=== PATIENT | male | born 1940 | race Caucasian/White ===

== ENCOUNTER 2018-09-07 09:27 | Emergency (ER) | payer MEDICARE ==
[~2018-09-07] VITALS: Ht 185.4 cm; Wt 104.1 kg
[~2018-09-07 09:27] MED LIST: AMLODIPINE BESYL5 MG PO; AMLODIPINE10 MG OR; AMLODIPINE10 MG PO; ANTIVERT OR; ASPIRIN EC81 MG PO; ATORVASTATIN CA40 MG PO; BABY ASPIRIN81 MG OR; BENICAR20 MG PO; CO Q 1010 MG PO; DIOVAN160 MG OR; DIOVAN160 MG PO; FLOMAX0.4 M1 PO; LANOXIN0.25 MG OR; LASIX40 MG OR; LIPITOR10 MG PO; LIPITOR20 MG OR; LIPITOR20 MG PO; LOSARTAN POT50 MG PO; METO50TA52 PO; METOPROL TAR50 MG OR; MULTIVITAM10 OR; OMEPRAZOLE20 MG PO; PLAVIX75 MG OR; PRILOSEC20 MG/CAP PO; SIMVASTATIN40 MG PO; TAMSULOSIN0.4 MG OR; ULTRAM ER100 MG OR; VITAMIN D PO; VITAMIN D400 UNI1 PO
[2018-09-07] MEDS ORDERED: VITAMIN D-32000 UNIT PO (09:42)
[2018-09-07] MEDS ORDERED: CARVEDILOL25 MG PO (09:42)
[2018-09-07] MEDS ORDERED: LOSARTAN POTASS50 MG PO (09:43)
[2018-09-07] MEDS ORDERED: HYDRALAZINE25 MG PO (09:43)
[2018-09-07 09:55] LABS: HEMATOCRIT 38.3 % (39.0-50.0); IMMATURE GRANULOCYTES 0.3 % (0.0-5.0); MEAN CORPUSCULAR HGB 33.2 pG CALC (26.0-32.0); MEAN CORPUSCULAR HGB CONC 33.9 g/L CALC (32.0-36.0); NEUT# 4.59 thou/uL (1.82-7.42); RED BLOOD COUNT 3.91 mill/uL (4.70-6.10); RED CELL DISTRI WIDTH 13.4 % (11.5-15.5)
[2018-09-07 10:13] LABS: ALKALINE PHOSPHATASE 81 u/l (38-126); ANION GAP 14 (6-22 (CALC)); BILIRUBIN, TOTAL 0.9 mg/dL (0.0-1.4); BUN 21 mg/dL (8-23); BUN/CREATININE RATIO 16 (12-20 (CALC)); CARBON DIOXIDE 25 mmol/l (22-30); CHLORIDE 107 mmol/l (95-108); CREATININE 1.3 mg/dL (0.7-1.3); GFR 53 ML/MIN (>=60 (CALC)); GFR FOR AFR.AMER. > 60 ML/MIN (>=60 (CALC)); POTASSIUM 4.6 mmol/l (3.5-5.1); SGOT/AST 37 u/l (19-48); SODIUM 141 mmol/l (137-146); TOTAL PROTEIN 7.4 g/dL (6.3-8.2)
[2018-09-07 11:38] VITALS: BP 151/72
== END 2018-09-07 11:40 | disposition home or self-care (01) ==
LOC: ED 09:27
PROVIDERS: Emergency Medicine
DX: R00.2 Palpitations (principal); I10 Essential (primary) hypertension; Z95.1 Presence of aortocoronary bypass graft

== ENCOUNTER 2020-04-23 19:24 | Observation (INO) | payer MEDICARE ==
[~2020-04-23] VITALS: Ht 185.4 cm; Wt 99.1 kg
[~2020-04-23 19:24] MED LIST changes: +B-121000 MC1 PO; +CARVEDILOL25 MG PO; +CO Q-10200 M1 PO; +HYDRALAZINE25 MG PO; +LIPITOR40 M1 PO; +LOSARTAN POTASS50 MG PO; +MICARDIS HC1 PO; +NITROGLYCERIN0.4 MG; -PRILOSEC20 MG/CAP PO; +TIZANIDINE2 MG PO; +VITAMIN D-32000 UNIT PO; +VITAMIN D32000 UNIT PO
--- NOTE | 2020-04-23 19:36 | NUR ---
IMMEDIATELY TO ROOM 12 VIA WC IN STABLE CONDITION. EKG OBTAINED, READ SINUS RAHUL, DR PRASAD NOTIFIED OF PT'S STATUS.
[2020-04-23] MEDS ORDERED: PRILOSEC20 MG/CAP PO (19:45)
[2020-04-23 20:04] LABS: HEMATOCRIT 37.1 % (39.0-50.0); HEMOGLOBIN 12.4 g/dl (14.0-18.0); IMMATURE GRANULOCYTES 0.2 % (0.0-5.0); MEAN CELL VOLUME 96.4 fL CALC (80.0-100.0); MEAN CORPUSCULAR HGB 32.2 pG CALC (26.0-32.0); MEAN CORPUSCULAR HGB CONC 33.4 g/dL CAL (32.0-36.0); NEUT# 4.48 thou/uL (1.82-7.42); RED BLOOD COUNT 3.85 mill/uL (4.70-6.10); RED CELL DISTRI WIDTH 13.2 % (11.5-15.5)
[2020-04-23 20:10] LABS: ALBUMIN 4.3 g/dL (3.2-5.0); ALKALINE PHOSPHATASE 90 u/l (38-126); AMYLASE 107 u/l (30-110); ANION GAP 11 (6-22 (CALC)); BILIRUBIN, TOTAL 0.6 mg/dL (0.0-1.4); BUN 31 mg/dL (8-23); BUN/CREATININE RATIO 22 (12-20 (CALC)); CARBON DIOXIDE 26 mmol/l (22-30); CHLORIDE 104 mmol/l (95-108); CREATININE 1.4 mg/dL (0.7-1.3); GFR 49 ML/MIN (>=60 (CALC)); GFR FOR AFR.AMER. 59 ML/MIN (>=60 (CALC)); LIPASE 125 u/l (23-300); POTASSIUM 4.1 mmol/l (3.5-5.1); SGOT/AST 25 u/l (19-48); SODIUM 137 mmol/l (137-146); TOTAL PROTEIN 7.3 g/dL (6.3-8.2)
[2020-04-23 20:12] LABS: D-DIMER 2.44 mg/L (0.19-0.60)
[2020-04-23 20:16] LABS: ACT PARTIAL THROMBO TIME 23.4 SECONDS (20.0-32.5); PROTHROMBIN TIME 10.1 SECONDS (9.0-12.5)
--- NOTE | 2020-04-23 20:36 | NUR ---
PT STILL DENIES ANY PAIN OR DISCOMFORT. STILL WAITING ON TEST RESULTS.
[2020-04-23 20:45] LABS: MAGNESIUM 1.7 mg/dL (1.6-2.3)
--- NOTE | 2020-04-23 21:34 | NUR ---
DR PRASAD IN TO GO OVER RESULTS WITH PT.
--- NOTE | 2020-04-23 22:20 | NUR ---
CALLED TO GIVE REPORT. PLACED ON TERMINAL HOLD.
--- NOTE | 2020-04-23 22:27 | NUR ---
Admission Note Report Given to: DENZEL BUSTILLOS Transported by: X Wheelchair Stretcher Transported with: X Nurse Transporter X Patent IV O2 Stove Tender Location: ICU X MS2
[2020-04-23 22:43] VITALS: BP 156/81
--- NOTE | 2020-04-23 23:00 | NUR ---
PT. ARRIVED TO THE FLOOR AT 2240; ADMISSION ASSESMENT COMPLETED. NO RESP. DISTRESS NOTED. IV SITE PATENT AND SL, FLUSHES WELL. TELEMETRY IN PLACE. PT. DENIES CP AT THIS TIME AND NITRO PASTE IN PLACE TO LEFT CHEST. DECLINES CHASIDY HOSE AND NON-SKID SOCKS APPLIED. EDUCATED STOCKROOM SELECTOR LIGHT, ROOM, AND POC; VERBALIZES UNDERSTANDING. PO FLUIDS OFFERED. PT. DENIES NEEDS/PAIN. ENCOURAGED TO CALL FOR ANY NEEDS.
[2020-04-23 23:10] LABS: URINE BILIRUBIN - DIPSTICK NEGATIVE (NEGATIVE); URINE BLOOD DIPSTICK NEGATIVE (NEGATIVE); URINE COLOR YELLOW; URINE GLUCOSE - DIPSTICK NEGATIVE (NEGATIVE); URINE KETONE NEGATIVE (NEGATIVE); URINE LEUK ESTERASE NEGATIVE (NEGATIVE); URINE NITRITE - DIPSTICK NEGATIVE (Negative); URINE PROTEIN - DIPSTICK NEGATIVE (NEG-TRACE); URINE SPECIFIC GRAVITY 1.015; URINE UROBILINOGEN - DIPSTICK 0.2 E.U./dL (0.2)
--- NOTE | 2020-04-23 23:44 | NUR ---
PT. REQUESTS PRN SLEEPING PILL AND MEDICATED WITH ORDERED PRN RESTORIL. DENIES FURTHER NEEDS.
[2020-04-24 04:00] VITALS: BP 137/63
--- NOTE | 2020-04-24 04:00 | NUR ---
REMOVED NITRO PASTE FROM CHEST R/T LOW HR. DENIES NEEDS/PAIN. ENCOURAGED TO CALL FOR ANY NEEDS.
[2020-04-24 06:18] LABS: MAGNESIUM 1.7 mg/dL (1.6-2.3)
[2020-04-24 06:19] LABS: CHOLESTEROL HDL RATIO 3.2 (<4.4 (CALC))
[2020-04-24 07:31] VITALS: BP 155/69
--- NOTE | 2020-04-24 08:15 | NUR ---
ASSESSMENT IS COMPLTED: IV SITE IS FREE FROM REDNESS OR EDEMA. HR IS REG,PULSES ARE STRONG X4, ABD IS SOFT WITH ACTIVE BS. BREATH SOUNDS ARE CLEAR BILATERALLY, NO C/O SOB. NO C/O CHEST PRESSURE. STATED" IT WAS GONE BEFORE COMING TO [facility]". TELE MONITOR IN PLACE. CONTINUE TO OBSERVE AND MONITOR.
[2020-04-24 10:30] VITALS: BP 157/73
--- NOTE | 2020-04-24 12:15 | NUR ---
PT FAMILY IN THE ROOM. NO DITRESS MOTED. IV SITE IS FREE FROM REDNESS OR EDEMA. TELE AND IV DISCONITNUED CATHETER INTACT NO REDNESS OR EDEMA.
--- NOTE | 2020-04-24 12:35 | NUR ---
DISCHARGE INSTRUCTIONS GIVEN TO PT AND FAMILY VERBALIZED UNDERSTANDING. WILL INFORM WHEN HE IS READY TO GO.
--- NOTE | 2020-04-24 13:00 | NUR ---
Discharge instructions given. Patient verbalizes understanding of same. Discharged in stable condition via Wheelchair to Home with family. All belongings sent with pt.
== END 2020-04-24 12:44 | disposition home or self-care (01) ==
LOC: ED 19:24 → ED-I 21:30 → ED 21:44 → MS2 21:45
PROVIDERS: ADMIT Internal Medicine; ATTEND Internal Medicine
DX: R07.89 Other chest pain (principal); I10 Essential (primary) hypertension; I25.10 Atherosclerotic heart disease of native coronary artery without angina pectoris; E78.5 Hyperlipidemia, unspecified; R00.1 Bradycardia, unspecified; R14.2 Eructation; R10.13 Epigastric pain; I25.2 Old myocardial infarction; Z95.1 Presence of aortocoronary bypass graft; Z20.828 Contact with and (suspected) exposure to other viral communicable diseases
CPT/HCPCS: G0378; Q9967

== ENCOUNTER 2020-11-03 15:44 | Emergency (ER) | payer MEDICARE ==
[~2020-11-03] VITALS: Ht 185.4 cm; Wt 100.0 kg
[~2020-11-03 15:44] MED LIST changes: +PLAVIX75 MG PO; +PRILOSEC20 MG/CAP PO; +VITAMIN D32000 UNI2 PO; -VITAMIN D32000 UNIT PO
[2020-11-03 16:26] LABS: HEMATOCRIT 37.8 % (39.0-50.0); HEMOGLOBIN 12.6 g/dl (14.0-18.0); IMMATURE GRANULOCYTES 0.3 % (0.0-5.0); MEAN CELL VOLUME 96.2 fL CALC (80.0-100.0); MEAN CORPUSCULAR HGB 32.1 pG CALC (26.0-32.0); MEAN CORPUSCULAR HGB CONC 33.3 g/dL CAL (32.0-36.0); NEUT# 4.96 thou/uL (1.82-7.42); RED BLOOD COUNT 3.93 mill/uL (4.70-6.10); RED CELL DISTRI WIDTH 12.8 % (11.5-15.5)
[2020-11-03 16:41] LABS: ALKALINE PHOSPHATASE 95 u/l (38-126); BILIRUBIN, TOTAL 0.5 mg/dL (0.0-1.4); BUN 24 mg/dL (8-23); BUN/CREATININE RATIO 17 (12-20 (CALC)); CHLORIDE 105 mmol/l (95-108); CREATININE 1.4 mg/dL (0.7-1.3); GFR 49 ML/MIN (>=60 (CALC)); GFR FOR AFR.AMER. 59 ML/MIN (>=60 (CALC)); POTASSIUM 4.1 mmol/l (3.5-5.1); SGOT/AST 24 u/l (19-48); SODIUM 139 mmol/l (137-146); TOTAL PROTEIN 7.2 g/dL (6.3-8.2)
[2020-11-03 16:43] LABS: ANION GAP 10 (6-22 (CALC)); CARBON DIOXIDE 28 mmol/l (22-30)
[2020-11-03 16:52] LABS: MYOGLOBIN 84 ng/mL (0 - 121)
[2020-11-03 18:17] VITALS: BP 128/56
== END 2020-11-03 18:33 | disposition home or self-care (01) ==
LOC: ED 15:44
PROVIDERS: Emergency Medicine
DX: I10 Essential (primary) hypertension (principal); Z20.822 Contact with and (suspected) exposure to COVID-19

== ENCOUNTER 2020-11-04 16:45 | Emergency (ER) | payer MEDICARE ==
[~2020-11-04] VITALS: Ht 185.4 cm; Wt 100.0 kg
[2020-11-04 19:44] VITALS: BP 163/71
== END 2020-11-04 19:44 | disposition home or self-care (01) ==
LOC: ED 16:45
DX: I10 Essential (primary) hypertension (principal)

== ENCOUNTER 2023-03-10 01:52 | Emergency (ER) | payer MEDICARE ==
[2023-03-10] VITALS (26 sets, daily range): BP systolic 69–168; BP diastolic 44–108
[~2023-03-10] VITALS: Ht 185.4 cm; Wt 102.0 kg
[2023-03-10 03:23] LABS: BASO% 0.4 % (0-3); EOS% 6.1 % (0-8); HEMATOCRIT 36.9 % (39.0-50.0); HEMOGLOBIN 11.9 g/dl (14.0-18.0); IMMATURE GRANULOCYTES 0.2 % (0.0-5.0); LYMPH% 19.6 % (15-41); MEAN CELL VOLUME 102.2 fL CALC (80.0-100.0); MEAN CORPUSCULAR HGB CONC 32.2 g/dL CAL (32.0-36.0); MONO% 11.6 % (2-13); NEUT# 6.33 thou/uL (1.82-7.42); NEUT% 62.1 % (42-76); RED BLOOD COUNT 3.61 mill/uL (4.70-6.10); RED CELL DISTRI WIDTH 12.4 % (11.5-15.5)
[2023-03-10 03:35] LABS: BILIRUBIN, TOTAL 0.6 mg/dL (0.2-1.3); CREATININE 1.5 mg/dL (0.7-1.3); POTASSIUM 3.9 mmol/l (3.5-5.1)
[2023-03-10 03:39] LABS: D-DIMER 0.53 mg/L (0.19-0.60)
[2023-03-10 03:45] LABS: ACT PARTIAL THROMBO TIME 30.9 SECONDS (20.0-32.5)
[2023-03-10 03:47] LABS: INTERNATIONAL NORMALIZED RATIO 1.4 RATIO (0.7-1.3); PROTHROMBIN TIME 13.3 SECONDS (9.0-12.5)
[2023-03-10 04:27] LABS: URINE BILIRUBIN - DIPSTICK NEGATIVE (NEGATIVE); URINE BLOOD DIPSTICK TRACE-INTACT (NEGATIVE); URINE COLOR YELLOW; URINE GLUCOSE - DIPSTICK NEGATIVE (NEGATIVE); URINE KETONE NEGATIVE (NEGATIVE); URINE LEUK ESTERASE NEGATIVE (NEGATIVE); URINE PH 6.5 (4.5-8.0); URINE PROTEIN - DIPSTICK 100 mg/dL (NEG-TRACE); URINE SPECIFIC GRAVITY 1.015; URINE UROBILINOGEN - DIPSTICK 0.2 E.U./dL (0.2)
[2023-03-10 04:28] LABS: URINE NITRITE - DIPSTICK NEGATIVE (Negative)
[2023-03-10 04:38] LABS: URINE MUCUS FEW hpf (NONE-FEW); URINE SQUAMOUS EPITHELIAL CELL FEW EPI/hpf (0-FEW)
== END 2023-03-10 06:43 | disposition short-term general hospital (02) ==
LOC: ED 01:52
PROVIDERS: Emergency Medicine
PROC: 0T9B70Z Drainage of Bladder with Drainage Device, Via Natural or Artificial Opening (ICD-10-PCS; principal; 2023-03-10)
PROC: 0BH17EZ Insertion of Endotracheal Airway into Trachea, Via Natural or Artificial Opening (ICD-10-PCS; 2023-03-10)
PROC: 5A1935Z Respiratory Ventilation, Less than 24 Consecutive Hours (ICD-10-PCS; 2023-03-10)
PROC: 5A12012 Performance of Cardiac Output, Single, Manual (ICD-10-PCS; 2023-03-10)
PROC: 5A2204Z Restoration of Cardiac Rhythm, Single (ICD-10-PCS; 2023-03-10)
DX: I21.3 ST elevation (STEMI) myocardial infarction of unspecified site (principal); I46.2 Cardiac arrest due to underlying cardiac condition; I49.02 Ventricular flutter; I49.01 Ventricular fibrillation; I10 Essential (primary) hypertension; I48.91 Unspecified atrial fibrillation; I25.2 Old myocardial infarction; Z95.1 Presence of aortocoronary bypass graft; Z95.5 Presence of coronary angioplasty implant and graft; Z95.0 Presence of cardiac pacemaker; Z79.01 Long term (current) use of anticoagulants; Z96.0 Presence of urogenital implants
CPT/HCPCS: J0282; J1644; J2060

== ENCOUNTER 2024-04-26 13:01 | Emergency (ER) | payer MEDICARE ==
[~2024-04-26] VITALS: Ht 185.4 cm; Wt 99.8 kg
[~2024-04-26 13:01] MED LIST changes: +ASPIRIN EC LOW81 MG PO; -ASPIRIN EC81 MG PO; +CORDARONE/200 MG/TAB PO; +CRESTOR40 MG PO; +FERROUS SULF325 M3 PO; +PROTONIX20 M1 PO; +TYLENOL 8 HOUR650 MG PO; +VITAMIN B-121000 MCG PO
[2024-04-26 13:14] VITALS: BP 145/69
[2024-04-26 13:15] VITALS: BP 147/71
[2024-04-26] MEDS ORDERED: Diph, Acellular Pertussis, Tet 0.5 ML/VIAL (Tdap) SDV IM ONE (13:15)
[2024-04-26] MEDS ORDERED: NEOMYCIN-BACITRACIN-POLYMYXIN 0.5 GM/PAK PAK TOP ONE (13:15)
[2024-04-26 13:31] VITALS: BP 151/68
[2024-04-26 13:45] VITALS: BP 157/79
[2024-04-26 14:00] VITALS: BP 159/83
[2024-04-26 14:03] VITALS: BP 159/83
== END 2024-04-26 14:04 | disposition home or self-care (01) ==
LOC: ED 13:01
DX: S51.812A Laceration without foreign body of left forearm, initial encounter (principal); S41.112A Laceration without foreign body of left upper arm, initial encounter; I25.10 Atherosclerotic heart disease of native coronary artery without angina pectoris; W01.190A Fall on same level from slipping, tripping and stumbling with subsequent striking against furniture, initial encounter; Y92.009 Unspecified place in unspecified non-institutional (private) residence as the place of occurrence of the external cause; Z79.02 Long term (current) use of antithrombotics/antiplatelets; Z95.1 Presence of aortocoronary bypass graft